=== PATIENT | female | born 1945 | race Caucasian/White ===

== ENCOUNTER → 2017-01-29 | Outpatient (CLI) | payer MEDICARE ==
--- NOTE | 2017-01-29 14:22 | MM ---
Reason for exam: follow-up at short interval from prior study. Last mammogram was performed 6 months ago. History: Patient is postmenopausal. Family history of premenopausal breast cancer in mother at age 52 and breast cancer in maternal aunt. Physical Findings: Nurse did not find any significant physical abnormalities on exam. MG 3D Diag Mammo W/Cad RT CC and MLO view(s) were taken of the right breast. Prior study comparison: August 09, 2016, bilateral MG 3d screening mammo w/cad. August 07, 2015, bilateral MG screening mammo w CAD. There are scattered fibroglandular densities. There is chronic nodularity in the right breast. No significant new findings when compared with previous films. These results were verbally communicated with the patient and result sheet given to the patient on 01/29/17. ASSESSMENT: Benign, BI-RAD 2 RECOMMENDATION: Return to routine screening mammogram schedule for both breasts.
== END | disposition home or self-care (01) ==
LOC: RADMAMWWP 13:33
PROVIDERS: ATTEND Obstetrics & Gynecology
DX: R92.8 Other abnormal and inconclusive findings on diagnostic imaging of breast (principal)
CPT/HCPCS: G0206; G0279

== ENCOUNTER → 2017-08-13 | Outpatient (CLI) | payer MEDICARE ==
--- NOTE | 2017-08-14 10:31 | MM ---
Reason for exam: screening (asymptomatic). Last mammogram was performed 6 months ago. History: Patient is postmenopausal. Family history of premenopausal breast cancer in mother at age 52 and breast cancer in maternal aunt. Physical Findings: A clinical breast exam by your physician is recommended on an annual basis and results should be correlated with mammographic findings. MG 3D Screening Mammo W/Cad Bilateral CC and MLO view(s) were taken. Prior study comparison: January 29, 2017, right breast MG 3d diag mammo w/cad RT. August 09, 2016, bilateral MG 3d screening mammo w/cad. August 07, 2015, bilateral MG screening mammo w CAD. August 04, 2013, bilateral digital screening mammo w/CAD. There are scattered fibroglandular densities. A nodularity asymmetry lateral right breast appears new. However, it partially disperses on 3D images and there is no clear correlate on the MLO view. A 6 month follow up is recommended. ASSESSMENT: Probably benign, BI-RAD 3 RECOMMENDATION: Follow-up diagnostic mammogram of the right breast in 6 months.
== END | disposition home or self-care (01) ==
LOC: RADMAMWWP 12:59
PROVIDERS: ATTEND Obstetrics & Gynecology
DX: Z12.31 Encounter for screening mammogram for malignant neoplasm of breast (principal); Z80.3 Family history of malignant neoplasm of breast
CPT/HCPCS: 77063; G0202

== ENCOUNTER 2018-01-29 14:44 | Emergency (ER) | payer MEDICARE ==
[2018-01-29 15:00] VITALS: BP 168/77; PULSE 63; RESP 18; TEMP 98.1
[2018-01-29] MEDS ORDERED: DIPH,PERTUS(ACELL)TETVAC-LF 0.5 ML VIAL IM ONE (15:11)
--- NOTE | 2018-01-29 15:31 | ED ---
General Adult HPI - General Chief complaint: Wound/Laceration Stated complaint: fall/lip lac Time Seen by Provider: 01/29/18 15:04 Source: patient, RN notes reviewed Mode of arrival: ambulatory Limitations: no limitations - History of Present Illness Initial comments: 72-year-old female presenting to the emergency room today with a chief complaint of a laceration to the left side of the lower lip. She does admit that she tripped over a piece of cement falling down cracking her tooth #10. She states she went to her dentist had this aching care of. She does have a laceration to the lower lip. She states is unsure of her tetanus status. She states she's not on any blood thinners. She denies any head injury, or loss consciousness, or other complaint. Patient denies any recent fever, chills, shortness of breath, chest pain, back pain, abdominal pain, nausea or vomiting, numbness or tingling, headaches or visual changes, or any other complaints. - Related Data Home Medications Medication Instructions Recorded Confirmed Ergocalciferol [Vitamin D2 50,000 unit PO Q14D 02/19/16 08/13/16 (DRISDOL)] Loratadine [Claritin] 10 mg PO DAILY 02/19/16 08/13/16 Methimazole [Tapazole] 5 mg PO MOTUWETHFRSA 02/19/16 08/13/16 Naproxen Sodium [Aleve] 220 mg PO BID PRN 02/19/16 08/13/16 Ranitidine HCl [Zantac] 150 mg PO BID PRN 02/19/16 08/13/16 Sertraline [Zoloft] 50 mg PO DAILY 02/19/16 08/13/16 Ubidecarenone [Co Q-10] 200 mg PO HS 02/19/16 08/13/16 ALPRAZolam [Xanax] 0.25 mg PO TID PRN 08/13/16 08/13/16 Atorvastatin Calcium [Lipitor] 20 mg PO HS 08/13/16 08/13/16 Carboxymethylcellulose Sodium 1 drop OP BID 08/13/16 08/13/16 [Refresh Tears] Metoprolol Tartrate [Lopressor] 50 mg PO BID 08/13/16 08/13/16 Previous Rx's Medication Instructions Recorded HYDROcodone/APAP 7.5-325MG [[place] 1 - 2 each PO Q6HR PRN #40 tab 08/14/16 7.5] Allergies Allergy/AdvReac Type Severity Reaction Status Date / Time No Known Allergies Allergy Verified 01/29/18 15:01 Review of Systems ROS Statement: Those systems with pertinent positive or pertinent negative responses have been documented in the HPI. ROS Other: All systems not noted in ROS Statement are negative. Past Medical History Past Medical History: GERD/Reflux, Hyperlipidemia, Hypertension, Musculoskeletal Disorder, Osteoarthritis (OA), Thyroid Disorder Additional Past Medical History / Comment(s): hyperthyroid, right shoulder nerve impingement History of Any Multi-Drug Resistant Organisms: None Reported Past Surgical History: Appendectomy, Orthopedic Surgery Additional Past Surgical History / Comment(s): ovarian cyst removed, cataract surg. rotator cuff repair r Past Anesthesia/Blood Transfusion Reactions: No Reported Reaction Additional Past Anesthesia/Blood Transfusion Reaction / Comment(s): "high anxiety" Past Psychological History: Anxiety, Panic Disorder Smoking Status: Never smoker Past Alcohol Use History: None Reported Past Drug Use History: None Reported - Past Family History Mother Family Medical History: Cancer Father Family Medical History: Cancer General Exam - General Exam Comments Initial Comments: General: The patient is awake and alert, in no distress, and does not appear acutely ill. Eye: Pupils are equal, round and reactive to light, extra-ocular movements are intact. No nystagmus. There is normal conjunctiva bilaterally. No signs of icterus. Ears, nose, mouth and throat: There are moist mucous membranes and no oral lesions. Patient does have dental fracture horizontally to tooth #10. Neck: The neck is supple, there is no tenderness or JVD. Musculoskeletal: Normal ROM, no tenderness. Strength 5/5. Sensation intact. Pulses equal bilaterally 2+. Neurological: A&O x 3. CN II-XII intact, There are no obvious motor or sensory deficits. Coordination appears grossly intact. Speech is normal. Skin: 1 cm laceration to the left lower lip that does not cross the vermilion border. Psychiatric: Cooperative, appropriate mood & affect, normal judgment. Limitations: no limitations Course Vital Signs 01/29/18 14:58 Temperature 98.1 F Pulse Rate 63 Respiratory 18 Rate Blood Pressure 168/77 O2 Sat by Pulse 99 Oximetry Procedures - Procedures Initial comment: 1 cm laceration running horizontally to the left side of the lower lip. The skin was anesthetized with 1% lidocaine. The laceration was then cleansed with and irrigated with normal saline. The wound was inspected, and there was no evidence of injury to deep structures. No foreign body was noted in the wound. A total of 3 skin sutures were placed utilizing 6-0 nylon. Medical Decision Making - Medical Decision Making Patient's laceration close to the emergency room and her tetanus updated. Patient discharged home. Disposition Clinical Impression: Laceration Disposition: HOME SELF-CARE Condition: Good Instructions: Laceration (ED) Additional Instructions: Please return to the emergency room in 5 days to have sutures removed. Please watch for any signs of infection which may include increased pain, swelling, redness, fever or chills. Please return to emergency room for any signs of infection do occur. Please use clean soap and water over the area to prevent scabbing over your stitches. Please return to the emergency room for any other concerns. Referrals: Milo Jackson MD [Primary Care Provider] - 1-2 days Time of Disposition: 15:31
== END 2018-01-29 15:43 | disposition home or self-care (01) ==
LOC: EC 14:44
DX: S01.511A Laceration without foreign body of lip, initial encounter (principal); K03.81 Cracked tooth; E78.5 Hyperlipidemia, unspecified; I10 Essential (primary) hypertension; F41.0 Panic disorder [episodic paroxysmal anxiety]; E05.90 Thyrotoxicosis, unspecified without thyrotoxic crisis or storm; Z79.899 Other long term (current) drug therapy; Z23 Encounter for immunization; W18.09XA Striking against other object with subsequent fall, initial encounter
CPT/HCPCS: 12011; 90471; 90715; 99282

== ENCOUNTER → 2018-02-12 | Outpatient (CLI) | payer MEDICARE ==
--- NOTE | 2018-02-12 10:28 | MM ---
Reason for exam: follow-up at short interval from prior study. Last mammogram was performed 6 months ago. History: Patient is postmenopausal. Family history of premenopausal breast cancer in mother at age 52 and breast cancer in maternal aunt. Physical Findings: Nurse did not find any significant physical abnormalities on exam. MG 3D Diag Mammo W/Cad RT CC, MLO, LM, spot compression MLO, spot compression CC, and XCCL view(s) were taken of the right breast. Prior study comparison: August 13, 2017, bilateral MG 3d screening mammo w/cad. January 29, 2017, right breast MG 3d diag mammo w/cad RT. There are scattered fibroglandular densities. Asymmetric density laterally appears improved on CC view. Asymmetric density, however, seems more pronounced on the XCCL and LM view. Ultrasound recommended. These results were verbally communicated with the patient and result sheet given to the patient on 02/12/18. ASSESSMENT: Incomplete: need additional imaging evaluation, BI-RAD 0 RECOMMENDATION: Ultrasound of the right breast. (upper outer quadrant)
--- NOTE | 2018-02-12 10:30 | USB ---
Reason for exam: additional evaluation requested from abnormal screening. History: Patient is postmenopausal. Family history of premenopausal breast cancer in mother at age 52 and breast cancer in maternal aunt. US Breast Limited RT Right breast ultrasound demonstrates a 6 x 2 x 5mm lobular, hypoechoic lesion at 10 o'clock, possibly cystic, imbedded in an island of dense tissue. This may correspond to the mammographic finding. These results were verbally communicated with the patient and result sheet given to the patient on 02/12/18. ASSESSMENT: Probably benign, BI-RAD 3 RECOMMENDATION: Follow-up diagnostic mammogram of both breasts in 6 months.
== END | disposition home or self-care (01) ==
LOC: RADMAMWWP 08:42
PROVIDERS: ATTEND Obstetrics & Gynecology
DX: R92.8 Other abnormal and inconclusive findings on diagnostic imaging of breast (principal)
CPT/HCPCS: 77065; 76642; G0279

== ENCOUNTER → 2018-09-14 | Outpatient (CLI) | payer MEDICARE ==
--- NOTE | 2018-09-15 09:05 | MM ---
Reason for exam: follow-up at short interval from prior study. Last mammogram was performed 7 months ago. History: Patient is postmenopausal. Family history of premenopausal breast cancer in mother at age 52 and breast cancer in maternal aunt. Physical Findings: Nurse did not find any significant physical abnormalities on exam. MG 3D Diag Mammo W/Cad CRISTOBAL Bilateral CC and MLO view(s) were taken. Prior study comparison: February 12, 2018, right breast MG 3d diag mammo w/cad RT. August 13, 2017, bilateral MG 3d screening mammo w/cad. The breast tissue is heterogeneously dense. This may lower the sensitivity of mammography. Stable benign calcifications. Persistent nodularity upper outer quadrant right breast 9.3cm from nipple. These results were verbally communicated with the patient and result sheet given to the patient on 09/14/18. ASSESSMENT: Incomplete: need additional imaging evaluation, BI-RAD 0 RECOMMENDATION: Ultrasound of the right breast.
--- NOTE | 2018-09-15 09:08 | USB ---
Reason for exam: additional evaluation requested from abnormal screening. History: Patient is postmenopausal. Family history of premenopausal breast cancer in mother at age 52 and breast cancer in maternal aunt. US Breast Limited RT Right limited breast ultrasound including focal area of concern, retroareolar and axilla demonstrates a 0.4 x 0.3 x 0.4cm hypoechoic lesion at 10 o'clock. These results were verbally communicated with the patient and result sheet given to the patient on 09/14/18. ASSESSMENT: Probably benign, BI-RAD 3 RECOMMENDATION: Follow-up diagnostic mammogram and ultrasound of the right breast in 6 months.
--- NOTE | 2018-09-15 20:40 | BD ---
EXAMINATION TYPE: Axial Bone Density DATE OF EXAM: 09/14/2018 COMPARISON: [id number] CLINICAL HISTORY: 73 YR OLD FEMALE....ICD-10 CODE: M85.9 KNOWN OSTEOPOROSIS Height: 63.2 Weight: 148 FRAX RISK QUESTIONS: Glucocorticoids (More than 3mos): NASAL SPRAY, FLONASE (Ex: prednisone, prednisolone, methylprednisolone, dexamethasone, and hydrocortisone). Secondary Osteoporosis: YES 2. Hyperthyroidism: YES RISK FACTORS HISTORY OF: History of Wrist Fracture: RT WRIST CHILD ONLY Family History of Osteoporosis: UNKNOWN Active: YES Postmenopausal woman: AT 52 YRS OLD MEDICATIONS: Prednisone or other steroids: STEROID, NASAL, FOR ALLERGIES, FLONASE Thyroid Medications: YES, TAPAZOL, HYPERTHYROID FOR ABOUT 4 YRS Osteoporosis Medications: FOSAMAX IN THE PAST FOR LONG TIME....OFF NOW FOR ABOUT 3 YRS Additional Medications: VIT D, BP MEDS, ZOLOFT, XANAX PRN, REFLUX MEDS, STATINS FOR CHOLESTEROL, Additional History: ALLERGIES, REFLUX, HYPERTENSION EXAM MEASUREMENTS: Bone mineral densitometry was performed using the Rysto System. Bone mineral density as measured about the Lumbar spine is: ----- L1-L4(G/cm2): 1.132 T Score Values are as follows: ----- L1: -0.3 ----- L2: -0.2 ----- L3: -0.3 ----- L4: -0.8 ----- L1-L4: -0.4 Bone mineral density has: Increased 8.7% since study of: 08.25.2015 Bone mineral density about the R hip (g/cm2): 0.880 Bone mineral density about the L hip (g/cm2): 0.849 T Score values are as follows: -----R Neck: -1.6 -----L Neck: -1.9 -----R Total: -1.3 -----L Total: -1.0 Bone mineral density has: Increased 1.6% since study of: 08.25.2015 FRAX%s: THERE IS A 18.4% CHANCE FOR A MAJOR OSTEOPOROTIC FX AND 4.2% FOR HIP FX.....PROBABILITY OF FX IN 10 YRS TIME IMPRESSION: Osteopenia (T Score between -2.5 and -1). There is slightly increased risk of fracture and the patient may be considered for treatment. Re-Screen 2-5 years. NOTE: T-SCORE=SD OF THE YOUNG ADULT MEAN.
== END | disposition home or self-care (01) ==
LOC: RADMAMWWP 13:40
PROVIDERS: ATTEND Obstetrics & Gynecology
DX: Z13.820 Encounter for screening for osteoporosis (principal); M85.88 Other specified disorders of bone density and structure, other site; R92.8 Other abnormal and inconclusive findings on diagnostic imaging of breast
CPT/HCPCS: 77080; 77066; 76642; G0279; 77062

== ENCOUNTER → 2019-03-22 | Outpatient (CLI) | payer MEDICARE ==
--- NOTE | 2019-03-22 10:37 | MM ---
Reason for exam: follow-up at short interval from prior study. Last mammogram was performed 6 months ago. History: Patient is postmenopausal. Family history of premenopausal breast cancer in mother at age 52 and breast cancer in maternal aunt. Physical Findings: Nurse did not find any significant physical abnormalities on exam. MG 3D Diag Mammo W/Cad RT CC and MLO view(s) were taken of the right breast. Prior study comparison: September 14, 2018, bilateral MG 3d diag mammo w/cad CRISTOBAL. February 12, 2018, right breast MG 3d diag mammo w/cad RT. There are scattered fibroglandular densities. Previous nodular focal asymmetry upper outer quadrant is no longer present. These results were verbally communicated with the patient and result sheet given to the patient on 03/22/19. ASSESSMENT: Incomplete: need additional imaging evaluation, BI-RAD 0 RECOMMENDATION: Ultrasound of the right breast.
--- NOTE | 2019-03-22 10:38 | USB ---
Reason for exam: follow-up at short interval from prior study. History: Patient is postmenopausal. Family history of premenopausal breast cancer in mother at age 52 and breast cancer in maternal aunt. US Breast Limited RT Right limited breast ultrasound including focal area of concern, retroareolar and axilla demonstrates a 0.4 x 0.3 x 0.2cm cystic lesion at 10 o'clock stable from prior. No other solid or cystic lesion. Scanned 9-12 o'clock upper outer quadrant. These results were verbally communicated with the patient and result sheet given to the patient on 03/22/19. ASSESSMENT: Benign, BI-RAD 2 RECOMMENDATION: Routine screening mammogram of both breasts in 6 months. Back on schedule for September 2019.
== END ==
LOC: RADMAMWWP 09:35
PROVIDERS: ATTEND Obstetrics & Gynecology
DX: R92.8 Other abnormal and inconclusive findings on diagnostic imaging of breast (principal)
CPT/HCPCS: 77065; 76642; G0279; 77061

== ENCOUNTER → 2019-10-14 | Outpatient (CLI) | payer MEDICARE ==
--- NOTE | 2019-10-15 13:51 | MM ---
Reason for exam: screening (asymptomatic). Last mammogram was performed 7 months ago. History: Patient is postmenopausal. Family history of premenopausal breast cancer in mother at age 52 and breast cancer in maternal aunt. Physical Findings: A clinical breast exam by your physician is recommended on an annual basis and results should be correlated with mammographic findings. MG 3D Screening Mammo W/Cad Bilateral CC and MLO view(s) were taken. Prior study comparison: March 22, 2019, right breast MG 3d diag mammo w/cad RT. September 14, 2018, bilateral MG 3d diag mammo w/cad CRISTOBAL. The breast tissue is heterogeneously dense. This may lower the sensitivity of mammography. Benign appearing bilateral calcifications. No suspicious abnormality. No significant changes when compared with prior studies. ASSESSMENT: Benign, BI-RAD 2 RECOMMENDATION: Routine screening mammogram of both breasts in 1 year.
== END | disposition home or self-care (01) ==
LOC: RADMAMWWP 07:45
PROVIDERS: ATTEND Obstetrics & Gynecology
DX: Z12.31 Encounter for screening mammogram for malignant neoplasm of breast (principal)
CPT/HCPCS: 77063; 77067

== ENCOUNTER → 2020-06-20 | Outpatient (CLI) | payer MEDICARE ==
[2020-06-20 10:13] LABS: Basophils % (A) 0 %; Eosinophils # (A) 0.1 k/uL (0-0.7); Eosinophils % (A) 2 %; HCT 43.9 % (34.0-46.0); HGB 13.5 gm/dL (11.4-16.0); Hypochromasia Slight; Lymphocytes # (A) 1.2 k/uL (1.0-4.8); Lymphocytes % (A) 20 %; MCH 30.1 pg (25.0-35.0); MCHC 30.7 g/dL (31.0-37.0); MCV 98.1 fL (80.0-100.0); Mean Platelet Volume 8.7; Monocytes # (A) 0.4 k/uL (0-1.0); Monocytes % (A) 6 %; Neutrophils % (A) 70 %; Platelet Count 192 k/uL (150-450); RBC 4.48 m/uL (3.80-5.40); RDW 12.8 % (11.5-15.5); WBC 5.7 k/uL (3.8-10.6)
[2020-06-20 16:22] LABS: African American GFR (CKD) 57.7 (60.0-200.0); Albumin 4.3 g/dL (3.80-4.90); Albumin/Globulin Ratio 2.05 (1.60-3.17); Anion Gap 6.1 mmol/L (4.00-12.00); BUN/Creat Ratio 19.09 Ratio (12.00-20.00); Calcium 9.7 mg/dL (8.7-10.3); Carbon Dioxide 29.9 mmol/L (21.6-31.8); Chol/HDL Ratio 3.67; Globulin 2.1 g/dL (1.6-3.3); LDL Cholesterol,Calculated 80.6 mg/dL (0.0-131.0); Non-African American GFR(CKD) 49.8 (60.0-200.0); Potassium 4.5 mmol/L (3.5-5.5); Total Bilirubin 0.4 mg/dL (0.2-1.2); Total Protein 6.4 g/dL (6.2-8.2); VLDL Calculation 15.4 mg/dL (5.00-40.00)
[2020-06-20 17:10] LABS: T4, Free (Free Thyroxine) 0.9 ng/dL (0.80-1.80)
[2020-06-20 17:34] LABS: Hemoglobin A1C 6.3 % (4.0-6.0)
== END | disposition home or self-care (01) ==
LOC: LABWHC1 09:00
PROVIDERS: ATTEND Internal Medicine Geriatric Medicine
DX: I25.10 Atherosclerotic heart disease of native coronary artery without angina pectoris (principal); E07.9 Disorder of thyroid, unspecified; R79.9 Abnormal finding of blood chemistry, unspecified
CPT/HCPCS: 36415; 80053; 80061; 83036; 84439; 84443; 85025

== ENCOUNTER → 2020-10-20 | Outpatient (CLI) | payer MEDICARE ==
[2020-10-20 12:15] LABS: HCT 42.8 % (34.0-46.0); HGB 13.9 gm/dL (11.4-16.0); MCH 31.3 pg (25.0-35.0); MCHC 32.4 g/dL (31.0-37.0); MCV 96.5 fL (80.0-100.0); Mean Platelet Volume 8.3; Platelet Count 194 k/uL (150-450); RBC 4.44 m/uL (3.80-5.40); WBC 5.2 k/uL (3.8-10.6)
[2020-10-20 12:46] LABS: Potassium 4.5 mmol/L (3.5-5.1)
== END | disposition home or self-care (01) ==
LOC: LABWHC1 10:24
PROVIDERS: ATTEND Internal Medicine Interventional Cardiology
DX: Z03.818 Encounter for observation for suspected exposure to other biological agents ruled out (principal); R94.39 Abnormal result of other cardiovascular function study
CPT/HCPCS: 36415; 80051; 82565; 84520; 85027

== ENCOUNTER 2020-10-24 09:32 | Day surgery (SDC) | payer MEDICARE ==
[2020-10-19 17:13] VITALS: BMI 25.0
[~2020-10-24 09:32] MED LIST: ALPRAZolam 0.25 MG TAB PO PRN; ALPRAZolam 0.5 MG TAB PO PRN; ASPIRIN 325 MG TAB PO STA; NITROGLYCERIN SL TABS 0.4 MG TAB SUBLINGUAL PRN; SODIUM CHLORIDE 0.9% 1,000 ML in EMPTY BAG 1 BAG IV ONE
[2020-10-24 10:25] VITALS: TEMP 98.5
[2020-10-24 10:35] LABS: Basophils # (A) 0.2 k/uL (0-0.2); Basophils % (A) 3 %; Eosinophils # (A) 0.1 k/uL (0-0.7); Eosinophils % (A) 1 %; HCT 45.8 % (34.0-46.0); Lymphocytes # (A) 0.8 k/uL (1.0-4.8); Lymphocytes % (A) 13 %; MCH 31.4 pg (25.0-35.0); MCHC 32.8 g/dL (31.0-37.0); MCV 95.7 fL (80.0-100.0); Mean Platelet Volume 8.1; Monocytes # (A) 0.5 k/uL (0-1.0); Monocytes % (A) 8 %; Neutrophils # (A) 4.6 k/uL (1.3-7.7); Neutrophils % (A) 75 %; Platelet Count 192 k/uL (150-450); RBC 4.79 m/uL (3.80-5.40); RDW 13.2 % (11.5-15.5); WBC 6.2 k/uL (3.8-10.6)
[2020-10-24 10:47] LABS: Calcium 9.3 mg/dL (8.4-10.2); Potassium 4.2 mmol/L (3.5-5.1)
[2020-10-24] MEDS ORDERED: VERAPAMIL 2.5 MG/ML 2 ML AMP ONE (11:59)
[2020-10-24] MEDS ORDERED: LIDOCAINE 1% INJ 10MG/ML (20 ML MDV) ONE (11:59)
[2020-10-24] MEDS ORDERED: LIDOCAINE 1% INJ 10MG/ML (20 ML MDV) SQ ONE (12:22)
[2020-10-24] MEDS ORDERED: MIDAZOLAM 2 MG/2 ML VIAL IV ONE (12:22)
[2020-10-24] MEDS: VERAPAMIL SYRINGE (5 MG/10 ML) INTRAARTER ONE ×2 (12:24→12:35)
[2020-10-24] MEDS ORDERED: HEPARIN SODIUM 1,000 UN/ML (10ML VL) ONE (12:24)
[2020-10-24] MEDS ORDERED: HEPARIN SODIUM 1,000 UN/ML (10ML VL) IV ONE (12:27)
[2020-10-24] MEDS ORDERED: IOPAMIDOL-370 125ML BTL INJ ONE (12:35)
[2020-10-24] MEDS ORDERED: RX INFO: IV CONTRAST WAS GIVEN 1 EACH MISC MISCELLANE PRN (12:44)
[2020-10-24] MEDS ORDERED: SODIUM CHLORIDE 0.9% 1,000 ML IV SCH (12:45)
--- NOTE | 2020-10-24 15:23 | CC ---
CARDIAC CATHETERIZATION REPORT DATE OF SERVICE: 10/24/2020 PERFORMING PHYSICIAN: Brian Lama M.D. PROCEDURES PERFORMED: 1. Selective right and left coronary angiogram. 2. Left heart catheterization. INDICATION: This is a 75-year-old female patient who was experiencing chest discomfort and underwent myocardial perfusion imaging stress test that revealed moderate area of reversibility involving the anterior wall of the left ventricle. Because of that, a heart catheterization was advised. APPROACH: Right radial artery. COMPLICATIONS: None. LEVEL OF SEDATION: Moderate, with sedation length of 16 minutes. PROCEDURE DESCRIPTION: After obtaining informed consent, the patient was brought to the cardiac flower shop laborer/designer. The right radial artery was cannulated using micropuncture technique. The micropuncture wire passed easily. Then I placed a 6-Polish sheath at the right radial artery. I gave the patient 2 mg of verapamil IA and 5000 units of heparin IV. Selective right and left coronary angiogram was performed using JR4 and JL3.5 catheters. Left heart catheterization was performed using a 6-Polish pigtail catheter. The procedure was completed without any complication. SELECTIVE CORONARY ANGIOGRAM: 1. The right coronary artery is a large-caliber vessel. It is a dominant vessel and appeared to be angiographically normal. It distally bifurcates into PDA and PLV branches. Both appeared to be angiographically normal. 2. The left main is angiographically normal. It bifurcates into LCX and LAD. 3. The LCX is a small- to medium-caliber vessel. It is a nondominant vessel. The LCX is angiographically normal. 4. The LAD is a large-caliber vessel. The LAD is angiographically normal as well. The LAD reach the apex. 5. HEMODYNAMICS: The LVEDP was 10 to 12 mmHg without significant gradient across the aortic valve. CONCLUSION: 1. Normal coronary angiogram. 2. Normal LVEDP. POST-PROCEDURE MANAGEMENT: 1. Medical treatment. 2. Follow up with the patient. MMODL / IJN: [id number] /
[2020-10-24 16:47] VITALS: BP 126/60; PULSE 59; RESP 12
== END 2020-10-24 16:32 | disposition home or self-care (01) ==
LOC: CATHCVL 09:32
PROVIDERS: ATTEND Internal Medicine Interventional Cardiology
DX: I20.0 Unstable angina (principal); I10 Essential (primary) hypertension; I65.22 Occlusion and stenosis of left carotid artery; E78.5 Hyperlipidemia, unspecified; I47.1 Supraventricular tachycardia; R94.39 Abnormal result of other cardiovascular function study; Z79.899 Other long term (current) drug therapy
CPT/HCPCS: 93458; 80048; 85025; C1769; C1894; J2250; J2001; J1644; Q9967

== ENCOUNTER → 2020-11-16 | Outpatient (CLI) | payer MEDICARE ==
--- NOTE | 2020-11-20 09:12 | MM ---
Reason for exam: screening (asymptomatic). Last mammogram was performed 1 year and 1 month ago. History: Patient is postmenopausal. Family history of premenopausal breast cancer in mother at age 52 and breast cancer in maternal aunt. Physical Findings: A clinical breast exam by your physician is recommended on an annual basis and results should be correlated with mammographic findings. MG 3D Screening Mammo W/Cad Bilateral CC and MLO view(s) were taken. Prior study comparison: October 14, 2019, bilateral MG 3d screening mammo w/cad. March 22, 2019, right breast MG 3d diag mammo w/cad RT. The breast tissue is heterogeneously dense. This may lower the sensitivity of mammography. There are benign appearing round calcifications in the right breast. There is no discrete abnormality. ASSESSMENT: Benign, BI-RAD 2 RECOMMENDATION: Routine screening mammogram of both breasts in 1 year.
== END | disposition home or self-care (01) ==
LOC: RADMAMWWP 09:18
PROVIDERS: ATTEND Internal Medicine Geriatric Medicine
DX: Z12.31 Encounter for screening mammogram for malignant neoplasm of breast (principal)
CPT/HCPCS: 77063; 77067

== ENCOUNTER → 2021-01-29 | Outpatient (CLI) | payer MEDICARE ==
[2021-01-29 15:11] LABS: Basophils # (A) 0.05 X 10*3/uL (0.00-0.10); Basophils % (A) 0.9 %; Eosinophils % (A) 1.7 %; HCT 40.9 % (37.2-46.3); HGB 12.5 g/dL (12.0-15.0); Lymphocytes # (A) 1.21 X 10*3/uL (0.90-5.00); Lymphocytes % (A) 21.1 %; MCH 30.3 pg (27.0-32.0); MCHC 30.6 g/dL (32.0-37.0); MCV 99.3 fL (80.0-97.0); Mean Platelet Volume 11.8 fL (9.5-12.2); Monocytes # (A) 0.41 X 10*3/uL (0.20-1.00); Monocytes % (A) 7.2 %; Neutrophils # (A) 3.95 X 10*3/uL (1.80-7.70); Neutrophils % (A) 68.9 %; Platelet Count 207 X 10*3/uL (140-440); RBC 4.12 X 10*6/uL (4.10-5.20); RDW 13.4 % (11.5-14.5); WBC 5.73 X 10*3/uL (4.50-10.00)
[2021-01-29 15:52] LABS: African American GFR (CKD) 64.7 (60.0-200.0); Albumin 4.3 g/dL (3.80-4.90); Albumin/Globulin Ratio 2.53 (1.60-3.17); Anion Gap 6.3 mmol/L (4.00-12.00); Calcium 9.5 mg/dL (8.7-10.3); Carbon Dioxide 28.7 mmol/L (21.6-31.8); Chol/HDL Ratio 4.55; Globulin 1.7 g/dL (1.6-3.3); LDL Cholesterol,Calculated 91.2 mg/dL (0.0-131.0); Non-African American GFR(CKD) 55.8 (60.0-200.0); Potassium 4.4 mmol/L (3.5-5.5); Total Bilirubin 0.4 mg/dL (0.2-1.2); VLDL Calculation 18.8 mg/dL (5.00-40.00)
[2021-01-29 16:46] LABS: Hemoglobin A1C 5.8 % (4.0-6.0)
[2021-01-29 17:02] LABS: T4, Free (Free Thyroxine) 0.8 ng/dL (0.80-1.80)
== END | disposition home or self-care (01) ==
LOC: LABWHC1 09:31
PROVIDERS: ATTEND Internal Medicine Geriatric Medicine
DX: E07.9 Disorder of thyroid, unspecified (principal); I25.10 Atherosclerotic heart disease of native coronary artery without angina pectoris; R79.9 Abnormal finding of blood chemistry, unspecified
CPT/HCPCS: 36415; 80053; 80061; 83036; 84439; 84443; 85025

== ENCOUNTER → 2021-11-29 | Outpatient (CLI) | payer MEDICARE ==
--- NOTE | 2021-11-29 14:50 | MM ---
Reason for exam: screening (asymptomatic). Last mammogram was performed 1 year ago. History: Patient is postmenopausal. Family history of premenopausal breast cancer in mother at age 52 and breast cancer in maternal aunt. Physical Findings: A clinical breast exam by your physician is recommended on an annual basis and results should be correlated with mammographic findings. MG 3D Screening Mammo W/Cad Bilateral CC and MLO view(s) were taken. Prior study comparison: November 16, 2020, bilateral MG 3d screening mammo w/cad. October 14, 2019, bilateral MG 3d screening mammo w/cad. There are scattered fibroglandular densities. There are benign appearing round calcifications bilaterally. There is no discrete abnormality. ASSESSMENT: Benign, BI-RAD 2 RECOMMENDATION: Routine screening mammogram of both breasts in 1 year.
== END | disposition home or self-care (01) ==
LOC: RADMAMWWP 09:16
PROVIDERS: ATTEND Internal Medicine Geriatric Medicine
DX: Z12.31 Encounter for screening mammogram for malignant neoplasm of breast (principal); Z78.0 Asymptomatic menopausal state; Z80.3 Family history of malignant neoplasm of breast
CPT/HCPCS: 77063; 77067

== ENCOUNTER 2021-12-18 07:46 | Day surgery (SDC) | payer MEDICARE ==
[2021-12-13 11:37] VITALS: BMI 24.7
[~2021-12-18 07:46] MED LIST changes: -ALPRAZolam 0.25 MG TAB PO PRN; -ALPRAZolam 0.5 MG TAB PO PRN; -ASPIRIN 325 MG TAB PO STA; +LACTATED RINGERS 1,000 ML IV SCH; +LIDOCAINE 1% (10MG/ML) FOR IV START INTRADERMA PRN; -NITROGLYCERIN SL TABS 0.4 MG TAB SUBLINGUAL PRN; -SODIUM CHLORIDE 0.9% 1,000 ML in EMPTY BAG 1 BAG IV ONE
[2021-12-18 08:33] VITALS: TEMP 97.2
[2021-12-18] MEDS ORDERED: LIDOCAINE 1% INJ 10MG/ML (20 ML MDV) ONE (09:11)
[2021-12-18] MEDS ORDERED: PROPOFOL 10 MG/ML 20 ML VIAL IV ONE (09:11)
--- NOTE | 2021-12-18 09:16 | P.GSHP ---
History of Present Illness H&P Date: 12/18/21 Chief Complaint: Colon cancer screening 76-year-old female here today for colonoscopy. Last colonoscopy 5-10 years ago. Patient has history of polyps. Father with history of colon cancer. No bowel complaints. 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,covid infection History of Any Multi-Drug Resistant Organisms: None Reported Past Surgical History: Appendectomy, Heart Catheterization, Orthopedic Surgery Additional Past Surgical History / Comment(s): ovarian cyst removed, cataract surg.,rt rotator cuff repair r,[id number] Past Anesthesia/Blood Transfusion Reactions: No Reported Reaction Additional Past Anesthesia/Blood Transfusion Reaction / Comment(s): "high anxiety" Smoking Status: Never smoker - Past Family History Mother Family Medical History: Cancer Father Family Medical History: Cancer Medications and Allergies Home Medications Medication Instructions Recorded Confirmed Type Ergocalciferol [Vitamin D2 50,000 unit PO Q14D 02/19/16 12/18/21 History (DRISDOL)] Sertraline [Zoloft] 50 mg PO Q2D 02/19/16 12/18/21 History methIMAzole [Tapazole] 5 mg PO MOTUWETHFRSA 02/19/16 12/18/21 History ALPRAZolam [Xanax] 0.25 mg PO TID PRN 08/13/16 12/18/21 History Metoprolol Tartrate [Lopressor] 50 mg PO BID 08/13/16 12/18/21 History Fluticasone Nasal [place] [Flonase 2 spr EA NOSTRIL DAILY PRN 10/19/20 12/18/21 History Nasal [place]] Rosuvastatin Calcium [Crestor] 40 mg PO DAILY 10/19/20 12/18/21 History Sertraline [Zoloft] 100 mg PO Q2D 10/19/20 12/18/21 History Aspirin [[place]] 81 mg PO DAILY 12/13/21 12/18/21 History Propylene Glycol [Systane Complete] 1 drop BOTH EYES DAILY 12/13/21 12/18/21 History Allergies Allergy/AdvReac Type Severity Reaction Status Date / Time No Known Allergies Allergy Verified 12/18/21 08:42 Surgical - Exam Vital Signs Temp Pulse Resp BP Pulse Ox 97.2 F L 53 L 16 162/70 97 12/18/21 08:32 12/18/21 08:32 12/18/21 08:32 12/18/21 08:32 12/18/21 08:32 Physical exam: General: Well-developed, well-nourished HEENT: Normocephalic, sclerae nonicteric Abdomen: Nontender, nondistended Extremities: No edema Neuro: Alert and oriented Assessment and Plan (1) Colon cancer screening Narrative/Plan: Will proceed with colonoscopy at this time Current Visit: Yes Status: Acute Code(s): Z12.11 - ENCOUNTER FOR SCREENING FOR MALIGNANT NEOPLASM OF COLON SNOMED Code(s): 069305394
--- NOTE | 2021-12-18 09:30 | P.PCN ---
Date of Procedure: 12/18/21 Procedure(s) Performed: PREOPERATIVE DIAGNOSIS: Screening, history of polyps, family history of colon cancer in father POSTOPERATIVE DIAGNOSIS: Ascending colon polyp, diverticulosis PROCEDURE: Colonoscopy with snare polypectomy ANESTHESIA: MAC SURGEON: Sadiq Holland M.D. SPECIMENS: Ascending colon polyp ENDOSCOPIC PROCEDURE: The patient was placed on the endoscopy table in the left decubitus position. The Olympus colonoscope was inserted into the anus and passed under direct visualization to the base of the cecum. The appendiceal orifice was visualized. From that point the scope was slowly withdrawn inspecting all surfaces carefully. There were no neoplastic inflammatory or polypoid lesions throughout the cecum. In the ascending colon a polyp was identified and removed using the snare with cautery technique. The remainder of the ascending transverse descending sigmoid and rectum appeared normal. There was mild left-sided diverticulosis. Digital rectal examination was normal. The patient was taken to the recovery room in stable condition per anesthesia guidelines. RECOMMENDATIONS: Await biopsy results. Recommend repeat colonoscopy 5 years.
[2021-12-18 09:35] VITALS: RESP 12
[2021-12-18 10:01] VITALS: BP 131/89; PULSE 55
== END 2021-12-18 10:18 | disposition home or self-care (01) ==
LOC: ORWHC2ENDO 07:46
PROVIDERS: ATTEND Surgery
DX: Z12.11 Encounter for screening for malignant neoplasm of colon (principal); D12.2 Benign neoplasm of ascending colon; K57.30 Diverticulosis of large intestine without perforation or abscess without bleeding; Z80.0 Family history of malignant neoplasm of digestive organs; Z86.010 Personal history of colon polyps; K21.9 Gastro-esophageal reflux disease without esophagitis; E78.5 Hyperlipidemia, unspecified; I77.6 Arteritis, unspecified; F41.9 Anxiety disorder, unspecified; I10 Essential (primary) hypertension; M19.90 Unspecified osteoarthritis, unspecified site; E05.90 Thyrotoxicosis, unspecified without thyrotoxic crisis or storm; Z86.16 Personal history of COVID-19; Z98.49 Cataract extraction status, unspecified eye; Z90.49 Acquired absence of other specified parts of digestive tract; Z98.890 Other specified postprocedural states; Z80.9 Family history of malignant neoplasm, unspecified; Z79.82 Long term (current) use of aspirin; Z79.899 Other long term (current) drug therapy
CPT/HCPCS: 88305; 45385; J2001; J2704

== ENCOUNTER → 2022-01-30 | Outpatient (CLI) | payer MEDICARE ==
--- NOTE | 2022-01-30 16:52 | BD ---
EXAMINATION TYPE: Axial Bone Density DATE OF EXAM: 01/30/2022 COMPARISON: 2017 CLINICAL HISTORY: 76 years year old Female. ICD-10 CODE: M81.0 OSTEOPOROSIS Height: 5'3 1/2 Weight: 145 FRAX RISK QUESTIONS: Secondary Osteoporosis: RISK FACTORS HISTORY OF: History of Wrist Fracture: rt When: child Diet low in dairy products/other sources of calcium: y Postmenopausal woman: y MEDICATIONS: Thyroid Medications: Which medication: Tapazole How Lon-4- years Additional Medications: high blood pressure, cholesterol, anxiety Additional History: EXAM MEASUREMENTS: Bone mineral densitometry was performed using the [employer] System. Bone mineral density as measured about the Lumbar spine is: ----- L1-L4(G/cm2): 1.088 T Score Values are as follows: ----- L1: -1.2 ----- L2: -0.9 ----- L3: -0.2 ----- L4: -1.0 ----- L1-L4: -0.8 Bone mineral density has: Decreased -2.4% since study of: 01/30/2022 Bone mineral density about the R hip (g/cm2): 0.793 Bone mineral density about the L hip (g/cm2): 0.891 T Score values are as follows: -----R Neck: -1.8 -----L Neck: -1.5 -----R Total: -1.1 -----L Total: -1.0 Bone mineral density has: Increased 1.0% since study of: 01/30/2022 FRAX%s: The graph provided illustrates a chance for a major osteoporotic fx and a chance for the hips probability for fx in 10 years time. IMPRESSION: Osteopenia (T Score between -2.5 and -1). There is slightly increased risk of fracture and the patient may be considered for treatment. Re-Screen 2-5 years. NOTE: T-SCORE=SD OF THE YOUNG ADULT MEAN.
== END | disposition home or self-care (01) ==
LOC: RADBDWWP 09:48
PROVIDERS: ATTEND Internal Medicine Geriatric Medicine
DX: M85.89 Other specified disorders of bone density and structure, multiple sites (principal)
CPT/HCPCS: 77080

== ENCOUNTER → 2024-02-23 | Outpatient (CLI) | payer MEDICARE ==
--- NOTE | 2024-02-23 09:41 | XR ---
EXAMINATION TYPE: XR lumbar spine 2 or 3V DATE OF EXAM: 02/23/2024 9:36 AM CLINICAL INDICATION:Female, 78 years old with history of M54.50 LOW BACK RUPA, PT HAS MAMMO AND BONE F IRST; COMPARISON: None TECHNIQUE: XR lumbar spine 2 or 3V - Frontal, lateral and coned in L5-S1 lateral views of the spine. FINDINGS: No evidence of any acute osseous pathology. No evidence of loss of vertebral body height i s seen. There is scoliosis alignment of the lumbar vertebral bodies with apex L2-L3. Mild scattered d isc space narrowing. Multilevel marginal osteophyte formation throughout the visualized spine. There is facet joint arthropathy throughout the spine. Scattered at least mild neural foraminal stenosis. A therosclerosis of the arterial vasculature. IMPRESSION: 1. No acute fracture. 2. Moderate multilevel disc degeneration with scoliosis changes.
--- NOTE | 2024-02-23 21:38 | MM ---
Reason for Exam: Screening (asymptomatic). Last mammogram was performed 1 year(s) and 2 month(s) ago. Patient History: Menarche at age 14. First Full-Term at age 30. Postmenopausal. Maternal aunt had breast cancer. Mother had breast cancer, age 52. Risk Values: Erika 5 year model risk: 3.5%. NCI Lifetime model risk: 7.0%. Prior Study Comparison: 11/16/2020 Bilateral Screening Mammogram, [facility]. 11/29/2021 Bilateral Screening Mammogram, [facility]. 12/20/2022 Bilateral MG 3D screening mammo w/cad, [facility]. Tissue Density: There are scattered areas of fibroglandular density. Findings: Analyzed By CAD. Pattern is stable. There is a group of punctate calcifications within the mid right breast which may be increasing from prior exam. Pain medications over the right medial lateral is recommended. There is a architectural distortion within the 12:00 middle position left breast which appears to be changing. Compression views over this area is recommended. Overall Assessment: Incomplete: need additional imaging evaluation, BI-RAD 0 Management: Diagnostic Mammogram of both breasts. A negative mammogram report should not preclude additional follow up of suspicious palpable abnormalities. Patient should continue monthly self breast exam. A clinical breast exam by your physician is recommended on an annual basis and results should be correlated with mammographic findings. Electronically signed and approved by: Lito Harrison D.O. Radiologis
--- NOTE | 2024-02-26 07:19 | BD ---
EXAMINATION TYPE: Axial Bone Density DATE OF EXAM: 02/23/2024 CLINICAL HISTORY: 78 years old Female. ICD-10 CODE: M81.0 AGE RELATED OSTEOPOROSIS Height: 63 Weight: 129 FRAX RISK QUESTIONS: 3. Menopause before 45: no at 52 yrs old RISK FACTORS HISTORY OF: History of Wrist Fracture: right as a child MEDICATIONS: bp meds, cholesterol, and anxiety meds, calcium and vit d2, coumadin, metformin, Thyroid Medications: yes, for about 6 yrs, Tapazole EXAM MEASUREMENTS: Bone mineral densitometry was performed using the [employer] System. Bone mineral density as measured about the Lumbar spine is: ----- L1-L4(G/cm2): 1.122 T Score Values are as follows: ----- L1: -1.1 ----- L2: -0.2 ----- L3: 0.4 ----- L4: -1.2 ----- L1-L4: -0.5 Z Score Values are as follows: ----- L1: 0.9 ----- L2: 1.8 ----- L3: 2.4 ----- L4: 0.8 ----- L1-L4: 1.5 Bone mineral density has: Increased 3.1% since study of: 01.30.2022 Bone mineral density about the R hip (g/cm2): 0.808 Bone mineral density about the L hip (g/cm2): 0.867 T Score values are as follows: -----R Neck: -1.9 -----L Neck: -1.6 -----R Total: -1.6 -----L Total: -1.1 Z Score values are as follows: -----R Neck: 0.2 -----L Neck: 0.6 -----R Total: 0.4 -----L Total: 0.9 Bone mineral density has: Decreased -4.1% since study of: 01.30.2022 FRAX%s: The graph provided illustrates a 13.1% chance for a major osteoporotic fx and a 3.5% chance f or the hips probability for fx in 10 years time. IMPRESSION: Osteopenia (T Score between -2.5 and -1). There is slightly increased risk of fracture and the patient may be considered for treatment. Re-Screen 2-5 years. NOTE: T-SCORE=SD OF THE YOUNG ADULT MEAN.
== END | disposition home or self-care (01) ==
LOC: RADMAMWWP 08:36
PROVIDERS: ATTEND Internal Medicine Geriatric Medicine
DX: Z12.31 Encounter for screening mammogram for malignant neoplasm of breast (principal); M85.89 Other specified disorders of bone density and structure, multiple sites; M51.36 Other intervertebral disc degeneration, lumbar region; M41.86 Other forms of scoliosis, lumbar region; Z78.0 Asymptomatic menopausal state; Z80.3 Family history of malignant neoplasm of breast
CPT/HCPCS: 72100; 77063; 77067; 77080

== ENCOUNTER → 2024-02-25 | Outpatient (CLI) | payer MEDICARE ==
--- NOTE | 2024-02-25 08:41 | MM ---
Reason for Exam: Additional evaluation requested from abnormal screening. Last screening mammogram was performed less than 1 month ago. Patient History: Menarche at age 14. First Full-Term at age 30. Postmenopausal. Maternal aunt had breast cancer. Mother had breast cancer, age 52. Risk Values: Erika 5 year model risk: 3.5%. NCI Lifetime model risk: 7.0%. Prior Study Comparison: 12/20/2022 Bilateral MG 3D screening mammo w/cad, [facility]. 02/23/2024 Bilateral MG 3D screening mammo w/cad, [facility]. Tissue Density: The breasts are heterogeneously dense, which may obscure small masses. Findings: Analyzed By CAD. Under compression no persistent suspicious asymmetric density or architectural distortion is evident within the left breast. Short-term follow-up in 6 months recommended. Under magnification views there are several small rounded calcifications in the large benign-appearing coarse calcifications. No suspicious cluster of microcalcifications evident. These can be followed on the annual screening mammogram. Overall Assessment: Probably benign, BI-RAD 3 Management: Diagnostic Mammogram of the left breast in 6 months. A negative mammogram report should not preclude additional follow up of suspicious palpable abnormalities. Patient should continue monthly self breast exam. A clinical breast exam by your physician is recommended on an annual basis and results should be correlated with mammographic findings. Note on Erika scores and lifetime risk: 1. A Erika score greater than 3% is considered moderate risk. If this is the case, consider specialist referral to assess eligibility for a risk reducing agent. 2. If overall lifetime risk for the development of breast cancer is 20% or higher, the patient may qualify for future screening with alternating mammogram and breast MRI. Electronically signed and approved by: Lito Harrison D.O. Radiologis
== END | disposition home or self-care (01) ==
LOC: RADMAMWWP 08:01
PROVIDERS: ATTEND Internal Medicine Geriatric Medicine
DX: R92.333 Mammographic heterogeneous density, bilateral breasts (principal); R92.1 Mammographic calcification found on diagnostic imaging of breast; Z80.3 Family history of malignant neoplasm of breast; Z78.0 Asymptomatic menopausal state
CPT/HCPCS: 77066; G0279; 77062

== ENCOUNTER → 2024-09-01 | Outpatient (CLI) | payer MEDICARE ==
--- NOTE | 2024-09-01 10:19 | MM ---
Reason for Exam: Follow-up at short interval from prior study. Last screening mammogram was performed 6 month(s) ago. Patient History: Menarche at age 14. First Full-Term at age 30. Postmenopausal. Maternal aunt had breast cancer. Mother had breast cancer, age 52. Risk Values: Erika 5 year model risk: 3.4%. NCI Lifetime model risk: 6.5%. Prior Study Comparison: 12/20/2022 Bilateral MG 3D screening mammo w/cad, [facility]. 02/23/2024 Bilateral MG 3D screening mammo w/cad, [facility]. 02/25/2024 Bilateral MG 3D work up w/cad [facility]. Tissue Density: Left: The breasts are heterogeneously dense, which may obscure small masses. Findings: Analyzed By CAD. Area of distortion persists however is present dating back to 2020. Precautionary ultrasound is advised. The left breast is otherwise unremarkable. Overall Assessment: Incomplete: need additional imaging evaluation, BI-RAD 0 Management: Diagnostic Breast Ultrasound of the left breast. . Results were given to the patient verbally at the time of exam. Patient should continue monthly self-breast exams. A clinical breast exam by your physician is recommended on an annual basis. This exam should not preclude additional follow-up of suspicious palpable abnormalities. Note on Erika scores and lifetime risk: 1. A Erika score greater than 3% is considered moderate risk. If this is the case, consider specialist referral to assess eligibility for a risk reducing agent. 2. If overall lifetime risk for the development of breast cancer is 20% or higher, the patient may qualify for future screening with alternating mammogram and breast MRI. [facility], , 09/01/2024 10:16 AM. Electronically signed and approved by: Macario Browning M.D. Radiologis
--- NOTE | 2024-09-01 10:40 | USB ---
Reason for Exam: Additional evaluation requested from abnormal screening. Patient History: Menarche at age 14. First Full-Term at age 30. Postmenopausal. Maternal aunt had breast cancer. Mother had breast cancer, age 52. Risk Values: Erika 5 year model risk: 3.4%. NCI Lifetime model risk: 6.5%. Technique: Method: Targeted. Prior Study Comparison: 12/20/2022 Bilateral MG 3D screening mammo w/cad, [facility]. 02/23/2024 Bilateral MG 3D screening mammo w/cad, [facility]. 02/25/2024 Bilateral MG 3D work up w/cad [facility], [facility]. Findings: The upper section of the breast of the left breast, the axilla of the left breast and the retroareolar of the left breast were scanned. No solid or cystic masses are identified.. Overall Assessment: Benign, BI-RAD 2 Management: Screening Mammogram of both breasts in 6 months. A clinical breast exam by your physician is recommended on an annual basis and results should be correlated with mammographic findings. This exam should not preclude additional follow-up of suspicious palpable abnormalities. Results were given to the patient verbally at the time of exam. [facility], , 09/01/2024 10:37 AM. Electronically signed and approved by: Macario Browning M.D. Radiologis
== END | disposition home or self-care (01) ==
LOC: RADMAMWWP 09:54
PROVIDERS: ATTEND Internal Medicine Geriatric Medicine
CPT/HCPCS: 77061; 77065

== ENCOUNTER 2025-03-05 09:54 | Emergency (ER) | payer MEDICARE ==
[2025-03-05] MEDS: HYDROcodone/APAP 7.5-325MG 1 EACH TAB PO ONE (10:54)
[2025-03-05] MEDS: KETOROLAC 15 MG/ML 1 ML VIAL IM STA (10:54)
--- NOTE | 2025-03-05 11:07 | ED ---
Fall HPI - General Chief Complaint: Fall Stated Complaint: L arm injury Time Seen by Provider: 03/05/25 10:10 Source: patient, family, RN notes reviewed Mode of arrival: ambulatory Limitations: no limitations - History of Present Illness Initial Comments: This is a 79-year-old female who presents to the emergency department for a fall. Patient states that yesterday she was on a walk and tripped on the concrete. She landed on her left side. Currently has pain over the left elbow and forearm, especially when she tries to move it. She had some minor abrasions on her knees and right elbow, however those are not painful. She did not recall hitting her head, but states that this morning she noticed a small bump on it. This is not painful. Unsure if it was from the fall. Denies any loss of consciousness. Not taking any blood thinners. MD Complaint: fall - Related Data Home Medications Medication Instructions Recorded Confirmed Ergocalciferol [Vitamin D2 50,000 unit PO Q14D 02/19/16 12/18/21 (DRISDOL)] Sertraline [Zoloft] 50 mg PO Q2D 02/19/16 12/18/21 methIMAzole [Tapazole] 5 mg PO MOTUWETHFRSA 02/19/16 12/18/21 ALPRAZolam [Xanax] 0.25 mg PO TID PRN 08/13/16 12/18/21 Metoprolol Tartrate [Lopressor] 50 mg PO BID 08/13/16 12/18/21 Fluticasone Nasal [place] [Flonase 2 spr EA NOSTRIL DAILY PRN 10/19/20 12/18/21 Nasal [place]] Rosuvastatin Calcium [Crestor] 40 mg PO DAILY 10/19/20 12/18/21 Sertraline [Zoloft] 100 mg PO Q2D 10/19/20 12/18/21 Aspirin [[place]] 81 mg PO DAILY 12/13/21 12/18/21 Propylene Glycol [Systane Complete] 1 drop BOTH EYES DAILY 12/13/21 12/18/21 Previous Rx's Medication Instructions Recorded HYDROcodone/APAP 5-325MG [[place] 1 tab PO Q6HR PRN 3 Days #12 tab 03/05/25 5-325] Ketorolac [Toradol] 10 mg PO Q6HR PRN #15 tab 03/05/25 Allergies Allergy/AdvReac Type Severity Reaction Status Date / Time No Known Allergies Allergy Verified 12/18/21 08:42 Review of Systems ROS Statement: Those systems with pertinent positive or pertinent negative responses have been documented in the HPI. ROS Other: All systems not noted in ROS Statement are negative. 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 rotator cuff repair r,AGNIESZKA Past Anesthesia/Blood Transfusion Reactions: No Reported Reaction Additional Past Anesthesia/Blood Transfusion Reaction / Comment(s): "high anxiety" Past Psychological History: Anxiety, Panic Disorder Smoking Status: Never smoker - Past Family History Mother Family Medical History: Cancer Father Family Medical History: Cancer General Exam Limitations: no limitations General appearance: alert, in no apparent distress Head exam: Present: atraumatic, normocephalic, normal inspection Respiratory exam: Present: normal lung sounds bilaterally. Absent: respiratory distress, wheezes, rales, rhonchi, stridor Cardiovascular Exam: Present: regular rate, normal rhythm Extremities exam: Present: other (Tenderness to palpation over the left forearm and elbow. Range of motion limited by pain. 2+ radial pulses) Neurological exam: Present: alert, oriented X3, CN II-XII intact Psychiatric exam: Present: normal affect, normal mood Skin exam: Present: warm, dry Course Vital Signs 03/05/25 03/05/25 10:04 12:25 Temperature 98.1 F 98.0 F Pulse Rate 65 54 L Respiratory 16 20 Rate Blood Pressure 168/75 160/69 O2 Sat by Pulse 99 Oximetry Procedures - Orthopedic Splinting/Casting Injury #1 Side: left Upper Extremity Injury Location: elbow Upper Extremity Immobilizer: sling/shoulder immobilizer, posterior splint, fiberglass cast Medical Decision Making - Medical Decision Making This is a 79 year old female who presents to the emergency department for left arm pain after a fall. Was pt. sent in by a medical professional or institution? @ -No Did you speak to anyone other than the patient for history? @ -No Did you review nursing and triage notes? @ -Yes, and I agree, it is accurate with regards to the patient's symptoms. Were old charts reviewed? @ -No Differential Diagnosis? @ -Differential Musculoskeletal Muscular strain, contusion, ligament sprain, fracture, arthritis, septic arthritis, bursitis, cellulitis, muscle spasm, nerve compression, DVT, arterial occlusion, herpes zoster, electrolyte abnormality, tumor.... This is not meant to be in all inclusive list EKG interpreted by me (3pts min.)? @ -Not obtained X-rays interpreted by me (1pt min.)? @ -X-ray of the left hand, forearm, and elbow obtained. My interpretation identifies no acute fractures on any of the images. CT interpreted by me (1pt min.)? @ -Not obtained U/S interpreted by me (1pt. min.)? @ -Not obtained What testing was considered but not performed? (CT, X-rays, U/S, labs)? Why? @ -None What meds were considered but not given? Why? @ -None Did you discuss the management of the patient with other professionals? @ -No Did you reconcile home meds? @ -No Was smoking cessation discussed for >3mins.? @ -No Was critical care preformed (if so, how long)? @ -No Were there social determinants of health that impacted care today? How? (Homelessness, low income, unemployed, alcoholism, drug addiction, transportation, low edu. Level, literacy, decrease access to med. care, prison, rehab)? @ -No Was there de-escalation of care discussed even if they declined? (Discuss DNR or withdrawal of care, Hospice)? @ -No What co-morbidities impacted this encounter? (DM, HTN, Smoking, COPD, CAD, Cancer, CVA, Hep., AIDS, mental health diagnosis, sleep apnea, morbid obesity)? @ -Osteoarthritis Was patient admitted / discharged? @ -Discharged. X-ray of the left hand, left forearm, and left elbow obtained. X-ray of the left elbow did not identify any discrete fracture, however there is a joint effusion and they advised correlation for an occult fracture. Findings reviewed with the patient. Posterior long arm splint was applied and her arm was put into a sling. She is already established with Dr. Norwood, orthopedics, and I advised follow-up for reevaluation. Toradol and [place] prescribed for pain control. Patient discharged home in stable condition. Case discussed with ED attending Dr. Bhakta. Return precautions reviewed in depth, the patient is instructed to return to the emergency department with any new, worsening, or concerning symptoms. Patient verbalized understanding. Undiagnosed new problem with uncertain prognosis? @ -None Drug Therapy requiring intensive monitoring for toxicity (Heparin, Nitro, Insulin, Cardizem)? @ -None Were any procedures done? @ -Long-arm posterior splint application Diagnosis/symptom? @ -Fall, occult fracture of left elbow Acute, or Chronic, or Acute on Chronic? @ -Acute Uncomplicated (without systemic symptoms) or Complicated (systemic symptoms)? @ -Uncomplicated Side effects of treatment? @ -None Exacerbation, Progression, or Severe Exacerbation] @ -Not applicable Poses a threat to life or bodily function? @ -May limit use of the left arm for the meantime - Radiology Data Radiology results: report reviewed, image reviewed Disposition Clinical Impression: Fall, Occult fracture of left elbow Disposition: HOME SELF-CARE Instructions (If sedation given, give patient instructions): Elbow Fracture (ED), Splint Care (ED) Additional Instructions: Return to the emergency department with any new, worsening, or concerning symptoms. Take the Toradol with Tylenol as needed for pain relief. If you choose to take the Toradol, do not take any other anti-inflammatories such as ibuprofen, take one or the other. Take the [place] sparingly when your pain is the most severe. Follow-up with Dr. Norwood. Prescriptions: HYDROcodone/APAP 5-325MG [[place] 5-325] 1 tab PO Q6HR PRN 3 Days #12 tab PRN Reason: Pain Ketorolac [Toradol] 10 mg PO Q6HR PRN #15 tab PRN Reason: Pain Is patient prescribed a controlled substance at d/c from ED?: Yes When asked, does pt state using other controlled substances?: No If prescribed controlled substance>3 days was MAPS reviewed?: Prescribed <3 Days Referrals: Milo Jackson MD [Primary Care Provider] - 1-2 days Juan Jose Norwood DO [Doctor of Osteopathic Medicine] - 1-2 days Time of Disposition: 12:10
--- NOTE | 2025-03-05 11:21 | XR ---
EXAMINATION TYPE: XR hand complete LT DATE OF EXAM: 03/05/2025 11:16 AM INDICATION: Patient age:Female; 79 years old; Reason for study: Fall; [facility] pain COMPARISON: None TECHNIQUE: Frontal, lateral and oblique views of the left hand were obtained. FINDINGS: No acute fracture or dislocation. Mild bone demineralization. No significant osteophytosis. No evidence of soft tissue swelling. IMPRESSION: No acute osseous pathology. [facility], , 03/05/2025 11:19 AM
--- NOTE | 2025-03-05 11:22 | XR ---
EXAMINATION TYPE: XR forearm LT DATE OF EXAM: 03/05/2025 11:16 AM INDICATION: Patient age:Female; 79 years old; Reason for study: Fall; [facility] pain COMPARISON: Left hand and elbow radiographs of the same date. TECHNIQUE: The left forearm was examined in AP and lateral projections. FINDINGS: No acute osseous pathology, soft tissue swelling or joint dislocations are seen. IMPRESSION: No evidence of acute fracture. [facility], , 03/05/2025 11:19 AM
--- NOTE | 2025-03-05 11:24 | XR ---
EXAMINATION TYPE: XR elbow complete LT DATE OF EXAM: 03/05/2025 11:16 AM INDICATION: Patient age:Female; 79 years old; Reason for study: Fall; [facility] pain COMPARISON: Left forearm radiograph the same day. TECHNIQUE: The left elbow was examined in AP, lateral, and oblique projections. FINDINGS: Minimal posterior elbow soft tissue swelling. No acute displaced fracture identified. No di slocation. Posterior elbow joint effusion demonstrated. IMPRESSION: 1. No discrete displaced fracture identified however there is a joint effusion. Occult elbow fractur e is not excluded. 2. Minimal posterior elbow soft tissue swelling. [facility], , 03/05/2025 11:21 AM
[2025-03-05 12:27] VITALS: BP 160/69; PULSE 54; RESP 20; TEMP 98
== END 2025-03-05 13:26 | disposition home or self-care (01) ==
LOC: EC 09:54
DX: S42.402A Unspecified fracture of lower end of left humerus, initial encounter for closed fracture (principal); M19.90 Unspecified osteoarthritis, unspecified site; W01.0XXA Fall on same level from slipping, tripping and stumbling without subsequent striking against object, initial encounter; Y93.01 Activity, walking, marching and hiking
CPT/HCPCS: 73080; 73090; 73130; 99283; 29105; 96372; J1885